=== PATIENT | female | born 1980 | race African-American/Black ===

== ENCOUNTER 2020-05-18 10:39 | Emergency (ER) | payer MEDICAID, OTHER ==
[~2020-05-18] VITALS: Ht 149.9 cm; Wt 91.0 kg
[~2020-05-18 10:39] MED LIST: DOCU-109 PO; FERR325T14 PO; GLYB5TAB3 PO; IBUP-1060 PO; OXYC1TAB15 PO; PNV1TABL25 PO
[2020-05-18 11:03] VITALS: BP 170/99
--- NOTE | 2020-05-18 11:46 | PHYS DOC ---
Past Medical History Past Medical History: No Pertinent History Past Surgical History: Cholecystectomy Smoking Status: Current Every Day Smoker Alcohol Use: None General Adult EDM: Chief Complaint: MECHANICAL FALL HPI: HPI: Patient is a 39 year old female who presents with states that last night she was at a restaurant and was walking with her daughter to the restroom when she tripped and fell onto her right side. She has right shoulder pain, right hip p ain and right-sided low back pain. There is no radiation of the pain. Pain is worsening with movement. Patient did drive herself here today. She is ambulatory with a steady gait. She does have full range of motion of her joints. She rates her aching pain an 8 out of 10. She states she did not take anything for medication for pain. She has a history of cholecystectomy and sm oker. Review of Systems: Review of Systems: Constitutional: Denies fever or chills. [] Eyes: Denies change in visual acuity. [] HENT: Denies nasal congestion or sore throat. [] Respiratory: Denies cough or shortness of breath. [] Cardiovascular: Denies chest pain or edema. [] GI: Denies abdominal pain, nausea, vomiting, bloody stools or diarrhea. [] : Denies dysuria. [] Musculoskeletal: + Right lower back pain or + right lateral hip joint pain. +Right posterior shoulder [] Integument: Denies rash. [] Neurologic: Denies headache, focal weakness or sensory changes. [] Endocrine: Denies polyuria or polydipsia. [] Lymphatic: Denies swollen glands. [] Psychiatric: Denies depression or anxiety. [] Heart Score: C/O Chest Pain: No Risk Factors: Risk Factors: DM, Current or recent (<one month) smoker, HTN, HLP, family history of CAD, obesity. Risk Scores: Score 0 - 3: 2.5% MACE over next 6 weeks - Discharge Home Score 4 - 6: 20.3% MACE over next 6 weeks - Admit for Clinical Observation Score 7 - 10: 72.7% MACE over next 6 weeks - Early Invasive Strategies Current Medications: Current Medications Medications (Trade) Dose Ordered Sig/Unruly Start Time Stop Time Status Last Admin Dose Admin Ibuprofen (Motrin) 600 mg 1X ONCE 05/18/20 11:45 05/18/20 11:46 UNV Allergies: Allergies: Allergies Coded Allergies Type Severity Reaction Last Updated Verified No Known Drug Allergies 12/05/15 No Physical Exam: PE: Constitutional: Well developed, well nourished, no acute distress, non-toxic appearance. [] HENT: Normocephalic, atraumatic, bilateral external ears normal, oropharynx moist, no oral exudates, nose normal. [] Eyes: PERRLA, EOMI, conjunctiva normal, no discharge. [] Neck: Normal range of motion, no tenderness, supple, no stridor. [] Cardiovascular:Heart rate regular rhythm, no murmur [] Lungs & Thorax: Bilateral breath sounds clear to auscultation [] Abdomen: Bowel sounds normal, soft, no tenderness, no masses, no pulsatile masses. [] Skin: Warm, dry, no erythema, no rash. [] Back: No tenderness, no CVA tenderness. [] Extremities: Right posterior shoulder, right lateral hip tenderness, no cyanosis, no clubbing, ROM intact, no edema. [] Neurologic: Alert and oriented X 3, normal motor function, normal sensory function, no focal deficits noted. [] Psychologic: Affect normal, judgement normal, mood normal. [] Current Patient Data: Vital Signs: Vital Signs Date Time Temp Pulse Resp B/P (MAP) Pulse Ox O2 Delivery O2 Flow Rate FiO2 05/18/20 11:03 98.7 92 16 170/99 (122) 97 Room Air 98.7 EKG: EKG: [] Radiology/Procedures: Radiology/Procedures: [] Impression: [facility] [address] [place], [place] [id number] IMAGING REPORT Signed PATIENT: BUBBA GUZMAN NACCOUNT: [id number] : 1980 LOCATION: ER AGE: 39 SEX: F EXAM STATUS: REG ER ORD. PHYSICIAN: JAIME RALPH APRN REASON: pain PROCEDURE: HUMERUS RIGHT EXAM: XR SHOULDER_RIGHT 2+ VIEWS 05/18/2020 1:06 PM CLINICAL INDICATION: Fall, pain and tenderness COMPARISON: None TECHNIQUE: 3 views of the right shoulder FINDINGS: No acute fracture or dislocation. The acromioclavicular and glenohumeral joints are normal. IMPRESSION: Normal right shoulder radiograph. EXAM: XR HUMERUS_RT 2 VIEWS 05/18/2020 1:06 PM CLINICAL INDICATION: Fall, pain and tenderness COMPARISON: None TECHNIQUE: 2 views of the right humerus FINDINGS: No acute fracture. Alignment at the shoulder and elbow is grossly maintained. IMPRESSION: Normal right humerus radiograph. EXAM: XR LUMBAR SPINE 2-3V 05/18/2020 1:06 PM CLINICAL INDICATION: Fall, pain COMPARISON: None. TECHNIQUE: 3 views of the lumbar spine FINDINGS: No acute fracture. Alignment is normal. Disc spaces and facet joints are maintained. IMPRESSION: Normal lumbar spine radiograph. EXAM: XR BILATERAL HIP (WITH OR WITHOUT PELVIS) 2 VIEWS_RIGHT 05/18/2020 1:06 PM CLINICAL INDICATION: Fall, pain COMPARISON: None TECHNIQUE: 3 views of the pelvis and right hip FINDINGS: No acute fracture. Alignment is normal. The right hip joint space is maintained. There are mild degenerative changes of the left hip. Pubic symphysis, sacroiliac joints, and lower lumbar spine are normal. IMPRESSION: Normal right hip. Electronically signed by: Naomy Bocanegra MD (05/18/2020 1:35 PM) [id number] DICTATED and SIGNED BY: NAOMY BOCANEGRA MD DATE: 05/18/20 [id number] 0 Course & Med Decision Making: Course & Med Decision Making Pertinent Labs and Imaging studies reviewed. (See chart for details) See HPI. Skin pink warm dry. Alert and oriented x4. Ambulatory with a steady gait. Posterior shoulder tenderness but there is no bruising, deformity or swelling to the joint. Radial pulses strong and present. Skin pink warm and dry. Cap refills less than 2 seconds. Patient has right lateral hip tenderness but there is no bruising or deformity and denies any numbness or tingling. P edal pulses strong and present. Cap refills less than 2 seconds. There is no focal bony spinal tenderness. Full range of motion of the neck and she denies any head or neck pain. She denies hitting her head she denies any kind of syncope, headache or dizziness. She has no focal weaknesses. There is no tenderness to the paraspinal on the right side where she states there is pain in the lumbar area. There is no radiation of this pain. Patient denies chest pain, shortness of breath, abdominal pain, nausea, vomiting, urinary symptoms. He is given ibuprofen in the ED. No joint or extremity swelling, bruising, laceration, abrasion, focal weakness, deformity. [] Dragon Disclaimer: Vijay Disclaimer: This electronic medical record was generated, in whole or in part, using a voice recognition dictation system. Departure Departure Impression: Primary Impression: Shoulder pain, right Qualified Codes: M25.511 - Pain in right shoulder Additional Impressions: Hip pain, right Fall Qualified Codes: W19.XXXA - Unspecified fall, initial encounter Disposition: DC HOME SELF CARE/HOMELESS Condition: STABLE Referrals: NO PCP (PCP) Patient Instructions: Fall Prevention and Home Safety, Hip Pain, Shoulder Pain Additional Instructions: Follow up with primary care provider if needed. Take medications as prescribed. Scripts Hydrocodone Bit/Acetaminophen (HYDROCODONE-APAP 5-325 ) 1 Tab Tablet 1 TAB PO PRN Q6HRS PRN for PAIN, #12 TAB 0 Refills Prov: JAIME RALPH APRN 05/18/20 Ibuprofen (IBUPROFEN) 600 Mg Tablet 600 MG PO PRN Q6HRS PRN for INFLAMMATION, #26 TAB Prov: JAIME RALPH APRN 05/18/20 JAIME RALPH APRN May 18, 2020 11:46
[2020-05-18] MEDS: IBUPROFEN 200 MG TABLET. PO ONE (13:01)
[2020-05-18 13:03] LABS: BILIRUBIN,URINE NEGATIVE (NEG); CLARITY,URINE CLEAR; COLOR,URINE YELLOW; NITRITE,URINE NEGATIVE (NEG); PROTEIN,URINE NEGATIVE (NEG-TRACE)
[2020-05-18 13:24] LABS: BACTERIA,URINE FEW /HPF (0-FEW); RBC,URINE 0 /HPF (0-2); WBC,URINE RARE /HPF (0-4)
--- NOTE | 2020-05-18 13:37 | RAD ---
EXAM: XR SHOULDER_RIGHT 2+ VIEWS 05/18/2020 1:06 PM CLINICAL INDICATION: Fall, pain and tenderness COMPARISON: None TECHNIQUE: 3 views of the right shoulder FINDINGS: No acute fracture or dislocation. The acromioclavicular and glenohumeral joints are normal . IMPRESSION: Normal right shoulder radiograph. EXAM: XR HUMERUS_RT 2 VIEWS 05/18/2020 1:06 PM CLINICAL INDICATION: Fall, pain and tenderness COMPARISON: None TECHNIQUE: 2 views of the right humerus FINDINGS: No acute fracture. Alignment at the shoulder and elbow is grossly maintained. IMPRESSION: Normal right humerus radiograph. EXAM: XR LUMBAR SPINE 2-3V 05/18/2020 1:06 PM CLINICAL INDICATION: Fall, pain COMPARISON: None. TECHNIQUE: 3 views of the lumbar spine FINDINGS: No acute fracture. Alignment is normal. Disc spaces and facet joints are maintained. IMPRESSION: Normal lumbar spine radiograph. EXAM: XR BILATERAL HIP (WITH OR WITHOUT PELVIS) 2 VIEWS_RIGHT 05/18/2020 1:06 PM CLINICAL INDICATION: Fall, pain COMPARISON: None TECHNIQUE: 3 views of the pelvis and right hip FINDINGS: No acute fracture. Alignment is normal. The right hip joint space is maintained. There are mild degenerative changes of the left hip. Pubic symphysis, sacroiliac joints, and lower lumbar spin e are normal. IMPRESSION: Normal right hip. Electronically signed by: Naomy Bocanegra MD (05/18/2020 1:35 PM) [id number]
[2020-05-18] MEDS ORDERED: HYDR-2761 PO ×2 (14:07→14:13)
[2020-05-18] MEDS ORDERED: IBUP-1007 PO (14:07)
== END 2020-05-18 14:44 | disposition home or self-care (01) ==
LOC: ER 10:39
DX: G89.11 Acute pain due to trauma (principal); M25.511 Pain in right shoulder; M25.551 Pain in right hip; M54.5 Low back pain; F17.200 Nicotine dependence, unspecified, uncomplicated; Z90.49 Acquired absence of other specified parts of digestive tract; W01.0XXA Fall on same level from slipping, tripping and stumbling without subsequent striking against object, initial encounter; Y93.89 Activity, other specified; Y92.89 Other specified places as the place of occurrence of the external cause; Y99.8 Other external cause status
CPT/HCPCS: 72100; 73030; 73060; 73502; 81001; 81025; 99284